=== PATIENT | male | born 1985 | race Caucasian/White ===

== ENCOUNTER 2025-06-11 10:57 | Outpatient (REF) | payer OTHER, SELFPAY ==
--- OUTSIDE RECORDS SUMMARY | 2025-06-11 13:02 | XMS_ITS | Encounter Summary ---
Author Organization Angela Day [facility] Address [address] [place] [address] Care Team Providers Care Level Vial Marker Name Role Phone Brandy Zarate MD, Adriel Buchanan Primary Care Provider + Shoshana Ordonez MD Primary Care Provider [phone] Shoshana Ordonez MD Primary Care Provider [phone] Daina Young DO Primary Care Provider [phone] Encounter Details Date Type Department Care Team (Late st Contact Info) Description 04/19/2011 Clinical Conversion Encounter [facility] Department of General Internal Medicine [facility] Primary Care [address] [address] Yu Gross MD [address] [place] [address] Social History Tobacco Use Types Packs/Day Years Used Date Smoking Tobacco: Never Assessed Sex and Gender Information Value Date Recorded Sex Assigned at Male 07/04/2019 10:04 PM EDT Legal Sex Male 5:10 AM EST Gender Identity Male 07/04/2019 10:04 PM EDT Sexual Orientation Not on file documented as of this encounter Miscellaneous Notes * Telephone Encounter - Yu Gross MD - 10/02/2014 4:57 PM EST [id number],JOSEPH REVISED [facility] - [place], [place]. Recorded as Task Date: 04/18/2011 01:12 PM, Created By: Lesley Barney Task Name: Patient-Call Back Assigned To: Lesley Barney Regarding Patient: YEHUDA ROSAS, Status: In Progress Comment: Lesley Barney - 18 Apr 2011 1:12 PM TASK CREATED Caller: Self; Pt is returning your p/c. YU GROSS - 18 Apr 2011 1:53 PM TASK EDITED calledleft message to call back. Lesley Barney - 18 Apr 2011 2:23 PM TASK IN PROGRESS Electronically signed by:Lesley Barney Apr 19 2011 11:55AM EST documented in this encounter Plan of Treatment Not on file documented as of this encounter Visit Diagnoses Not on filedocumented in this encounter Care Teams Level Vial Marker Relationship Specialty Start Date End Date Adriel Nava Jr., MD PCP - General 07/20/14 02/12/18 Shoshana Ordonez MD [address] [place] [address] PCP - General 02/13/18 02/13/18 Shoshana Ordonez MD [address] [place] [address] PCP - General 07/14/18 06/08/24 Daina Young DO [address] [facility] [address] [place] [id number] PCP - General Family Practice 06/09/24 documented as of this encounter
--- OUTSIDE RECORDS SUMMARY | 2025-06-11 13:02 | XMS_ITS | Clinical Summary ---
Author Organization [facility] Address [address] [facility] [place] [address] Care Team Providers Care Indian Trader Name Role Phone Pcp, None MD Primary Care Provider [phone] Allergies No known active allergies Medications TRAZODONE HCL (TRAZODONE ORAL) Take by mouth nightly. Active Social History Tobacco Use Types Packs/Day Years Used Date Smoking Tobacco: Every Day Cigarettes Alcohol Use Standard Drinks/Week Comments No 0 (1 standard drink = 0.6 oz pur e alcohol) Sex and Gender Information Value Date Recorded Sex Assigned at Not on file Legal Sex Male 9:37 AM EDT Gender Identity Not on file Sexual Orientation Not on file Last Filed Vital Signs Vital Sign Reading Time Taken Comments Blood Pressure 136/96 12/12/2017 1:41 PM EDT Pulse 91 12/12/2017 1:41 PM EDT Temperature 36.8 C (98.2 F) 12/12/2017 1:41 PM EDT Respiratory Rate 17 12/12/2017 1:41 PM EDT Oxygen Saturation 99% 12/12/2017 1:41 PM EDT Inhaled Oxygen Concentration - - Weight - - Height - - Body Mass Index - - Plan of Treatment Not on file Insurance [facility] [place] [id number] , [place] [address] [place] [address] , [place] [id number] , [place] [id number] , [place] [address] , [place] [address] , [place] [address] , [place] [address] [place] [address] [place] [address] [place] [address] [address]DA [address]OR[address] [id number] [address] [id number] [address] [id number] [address] [id number] [place]ORGAN [id number] Care Teams Indian Trader Relationship Specialty Start Date End Date Pcp, Carissa, [address] [place] [address] PCP - General 12/12/17
--- OUTSIDE RECORDS SUMMARY | 2025-06-11 13:02 | XMS_ITS | Encounter Summary ---
Author Organization Angela Day [facility] Address [address] [place] [address] Care Team Providers Care Manager Technical Training Name Role Phone Brandy Zarate MD, Adriel Buchanan Primary Care Provider + Shoshana Ordonez MD Primary Care Provider [phone] Shoshana Ordonez MD Primary Care Provider [phone] Daina Young DO Primary Care Provider [phone] Encounter Details Date Type Department Care Team (Late st Contact Info) Description 10/18/2011 Clinical Conversion Encounter GENERAL CONVERSION Eduardo Stover MD Social History Tobacco Use Types Packs/Day Years Used Date Smoking Tobacco: Never Assessed Sex and Gender Information Value Date Recorded Sex Assigned at Male 07/04/2019 10:04 PM EDT Legal Sex Male 5:10 AM EST Gender Identity Male 07/04/2019 10:04 PM EDT Sexual Orientation Not on file documented as of this encounter ED Notes * Eduardo Stover MD - 10/23/2014 10:22 PM EST [id number],JOSEPH [facility] Clinical Report - Physicians/Mid Levels [facility] [place] [address] 10/18/2011 Patient: YEHUDA ROSAS : 1985 Sex: M FC: [facility] Time Seen: 21:41 Oct 18 2011. Arrived- By private vehicle. HISTORY OF PRESENT ILLNESS Chief complaint- UPPER EXTREMITY PAIN and SWELLING. This started 2 days and is still present. The quality is noted to be pain . Severity is described as being moderate in degree. No radiation. Modifying factors- worsened by movement of wrist. He has had swelling but not had redness. Repetitive hand use at work. No chest pain, difficulty breathing, sensory loss or motor loss. Patient denies an injury. Similar symptoms previously: None. Recent medical care: The patient was seen recently in the emergency department. Seen for similar symptoms. Evaluation/treatment: x-rays. Diagnosis (Tendonitis). REVIEW OF SYSTEMS No fever, chills, eye discomfort, headache or depression. No sore throat, cough, skin rash, enlarged lymph nodes or neck pain. No abdominal pain, nausea, vomiting, diarrhea or black stools. No difficulty with urination, urinary frequency, hematuria or bloody stools. All systems otherwise negative, except as recorded above. PAST HISTORY See nurses notes. Medications: Voltaren Oral. Citalopram Hydrobromide Oral.. Allergies: No Known Drug Allergy.. SOCIAL HISTORY Occasional alcohol use. Nonsmoker - unknown if ever smoked. PHYSICAL EXAM Appearance: Alert. No acute distress. Vital Signs: (BP: 133 / 80. HR: 61. RR: 14. Temp: 97 F. O2 saturation: 100 % room air.). Skin: Skin intact. Skin warm. Normal skin color. Extremities: Right wrist: mild tenderness and swelling located in the volar aspect of the wrist. Limited ROM secondary to pain (diminished flexion and extension). Neurovascular intact distally. Extremities otherwise negative. Neuro: Oriented X 3. PROGRESS AND PROCEDURES Course of Care: 22:21. The patient's symptoms are unchanged.. Disposition: Condition: stable. CLINICAL IMPRESSION Tendonitis right wrist. INSTRUCTIONS Apply ice intermittently (15-20 minutes at a time 4-6 times daily). Elevate affected areas above chest level. Wear splint. Warnings: GENERAL WARNINGS: Return or contact your physician immediately if your condition worsens or changes unexpectedly, if not improving as expected, or if other problems arise. Specifically return if problem worsens. Your Current Medications: Your current home medications have been reviewed. No changes in your current home medications are recommended at this time. CONTINUE TAKING THE FOLLOWING MEDICATIONS: Citalopram Hydrobromide Oral Voltaren Oral. Prescription Medications: Vicodin 5 / 500 mg: take 1 orally every 4 hours as needed for pain. Dispense fifteen (15). No refill. Generic substitute OK. Follow-up: Follow up with an orthopedic surgeon in two days as scheduled. Understanding of the discharge instructions verbalized by patient. (Electronically signed by EDUARDO STOVER MD 10/18/2011 22:50) THIS DOCUMENT WAS ELECTRONICALLY AUTHENTICATED BY CK ON 10/18/2011 21:21:10: documented in this encounter Plan of Treatment Not on file documented as of this encounter Visit Diagnoses Not on filedocumented in this encounter Care Teams Manager Technical Training Relationship Specialty Start Date End Date Adriel Nava Jr., MD PCP - General 07/20/14 02/12/18 Shoshana Ordonez MD [address] [place] [address] PCP - General 02/13/18 02/13/18 Shoshana Ordonez MD [address] [place] [address] PCP - General 07/14/18 06/08/24 Daina Young DO [address] [facility] [address] [address] PCP - General Family Practice 06/09/24 documented as of this encounter
--- OUTSIDE RECORDS SUMMARY | 2025-06-11 13:02 | XMS_ITS | Encounter Summary ---
Author Organization Angela Day [facility] Address [address] [place] [address] Care Team Providers Care Polygraph Examiner Name Role Phone Brandy Zarate MD, Adriel Buchanan Primary Care Provider + Shoshana Ordonez MD Primary Care Provider [phone] Shoshana Ordonez MD Primary Care Provider [phone] Daina Young DO Primary Care Provider [phone] Encounter Details Date Type Department Care Team (Late st Contact Info) Description 12/16/2010 Clinical Conversion Encounter GENERAL CONVERSION Aria Posada MD Social History Tobacco Use Types Packs/Day Years Used Date Smoking Tobacco: Never Assessed Sex and Gender Information Value Date Recorded Sex Assigned at Male 07/04/2019 10:04 PM EDT Legal Sex Male 5:10 AM EST Gender Identity Male 07/04/2019 10:04 PM EDT Sexual Orientation Not on file documented as of this encounter ED Notes * Aria Posada MD - 10/02/2014 5:47 AM EST [id number],JOSEPH [facility] Clinical Report - Physicians/Mid Levels [facility] [place] [address] 12/16/2010 Patient: YEHUDA ROSAS : 1985 Sex: M FC: POS Time Seen: 23:58. Arrived- By private vehicle. Historian- patient. HISTORY OF PRESENT ILLNESS Chief Complaint: VOMITING. This started today and is still present. It was gradual in onset and has been waxing/waning. No recent travel. The patient has had nausea and vomiting. He has had crampy, constant abdominal pain. The pain is described as located in the central area of the abdomen. No diarrhea or history of possible bad food exposure. Has not recently been on antibiotics. The illness is described as severe. Similar symptoms previously: Patient has not had similar symptoms previously. Recent medical care: Not recently seen/assessed. REVIEW OF SYSTEMS No fever, difficulty with urination, dark urine, headache or dizziness. No cough, chest pain, difficulty breathing or fainting episodes. All systems otherwise negative, except as recorded above. PAST HISTORY Negative. Medications: None.. Allergies: No Known Drug Allergy.. SOCIAL HISTORY Occasional alcohol use. Nonsmoker. ADDITIONAL NOTES The nursing notes have been reviewed. PHYSICAL EXAM Appearance: Alert. Oriented X3. Vital Signs: Have been reviewed. Eyes: Pupils equal, round and reactive to light. ENT: Pharynx normal. Neck: Normal inspection. Neck supple. CVS: Normal heart rate and rhythm. Heart sounds normal. Pulses normal. Respiratory: No respiratory distress. Breath sounds normal. Abdomen: Soft. Tenderness in the upper abdomen and right side of the abdomen. Abnormal bowel sounds: hyperactive. Back: Normal inspection. Skin: Skin warm and dry. Extremities: No lower extremity edema. Neuro: Oriented X 3. No motor deficit. LABS, X-RAYS, AND EKG Laboratory Tests: AMYLASE: (CRYSTAL: 12/16/2010 23:23) ( MsgRcvd 12/16/2010 23:48) Final results Test Result Flag Units (Reference) AMYLASE 52 IU/L (25-130) [facility]; [place] COMP METAB PROF-PLASMA: (CRYSTAL: 12/16/2010 23:23) ( MsgRcvd 12/16/2010 23:48) Final results Test Result Flag Units (Reference) SODIUM 139 MMOL/L (135-146) POTASSIUM 3.5 MMOL/L (3.4-5.2) CHLORIDE 108 MMOL/L (98-110) TOTAL CO2 25 MMOL/L (24-32) ANION GAP 6 MMOL/L (2-15) BUN 17 MG/DL (7-20) CREATININE 0.8 MG/DL (0.6-1.3) GLUCOSE 116 H MG/DL (70-100) HOURS PC NOT STATED HR CALCIUM 8.7 MG/DL (8.4-10.4) GFR -AMER >60 ML/MIN (>60) GFR NON AFRICN-AMER >60 ML/MIN (>60) TOTAL PROTEIN 7.2 G/DL (6.2-8.2) ALBUMIN 4.1 G/DL (3.6-5.1) GLOBULIN 3.1 G/DL (2.0-4.0) AST (SGOT) 21 IU/L (11-40) ALT (SGPT) 22 IU/L (7-40) ALK PHOSPHATASE 65 IU/L (30-95) TOTAL BILIRUBIN 1.7 H MG/DL (0.2-1.3) [facility]; [place], [place] CBC WITH DIFF: (CRYSTAL: 12/16/2010 23:23) ( MsgRcvd 12/16/2010 23:40) Final results Test Result Flag Units (Reference) WBC 8.37 K/uL (4.4-11.3) RBC 5.44 M/uL (4.40-6.00) HEMOGLOBIN 16.8 G/DL (13.8-18.0) HEMATOCRIT 48.3 % (40.0-54.0) MCV 89 FL (80-96) PLATELET COUNT 172 K/uL (150-450) RDW 12.5 % (11.5-13.4) WBC 8.37 K/uL (4.4-11.3) [facility]; [place], [place] POLYS 83 H % (45-74) LYMPHOCYTE 10 L % (22-50) MONOCYTE 6 % (0.7-7.5) EOSINOPHIL 1 % (0-4) BASOPHIL 0 % (0-2) ABSOLUTE GRAN CT 6.96 H K/uL (1.4-6.6) ABSOLUTE LYMPH CT 0.85 L K/uL (1.2-3.5) ABSOLUTE MONO CT 0.47 K/uL (0.0-0.5) ABSOLUTE EOS CT 0.10 K/uL (0.00-0.40) ABSOLUTE BASO CT 0.00 L K/uL (0.02-0.08) . PROGRESS AND PROCEDURES Course of Care: 00:23. Patient feeling much better with fluids and zofran. Reexam of the abd reveals no tenderness. Will d/c with zofran ODT.. Disposition: Condition: good. Discharged. CLINICAL IMPRESSION Gastroenteritis. INSTRUCTIONS Drink plenty of fluids. Prescription Medications: Zofran (orally disintegrating tablets) 4 mg: every 6 hours as needed for nausea and vomiting. Dispense five (5). No refill. Follow-up: Follow up with your doctor. Call for an appointment. (Electronically signed by ARIA POSADA MD 12/17/2010 0:48) THIS DOCUMENT WAS ELECTRONICALLY AUTHENTICATED BY JUAN ON 12/16/2010 22:22:52: documented in this encounter Plan of Treatment Not on file documented as of this encounter Visit Diagnoses Not on filedocumented in this encounter Care Teams Polygraph Examiner Relationship Specialty Start Date End Date Adriel Nava Jr., MD PCP - General 07/20/14 02/12/18 Shoshana Ordonez MD [address] [place] [address] PCP - General 02/13/18 02/13/18 Shoshana Ordonez MD [address] [place] [address] PCP - General 07/14/18 06/08/24 Daina Young DO [address] [facility] [address] [place] [address] PCP - General Family Practice 06/09/24 documented as of this encounter
--- OUTSIDE RECORDS SUMMARY | 2025-06-11 13:02 | XMS_ITS | Encounter Summary ---
Author Organization [facility] Address [address] [place] [address] Care Team Providers Care Sales And Service Officer Name Role Phone Brandy Zarate MD, Adriel Buchanan Primary Care Provider + Shoshana Ordonez MD Primary Care Provider [phone] hSoshana Ordonez MD Primary Care Provider [phone] Daina Young DO Primary Care Provider [phone] Encounter Details Date Type Department Care Team (Late st Contact Info) Description 10/18/2011 Clinical Conversion Encounter GENERAL CONVERSION Adam Verdin MD [address] [place] [address] Social History Tobacco Use Types Packs/Day Years Used Date Smoking Tobacco: Never Assessed Sex and Gender Information Value Date Recorded Sex Assigned at Male 07/04/2019 10:04 PM EDT Legal Sex Male 5:10 AM EST Gender Identity Male 07/04/2019 10:04 PM EDT Sexual Orientation Not on file documented as of this encounter ED Notes * Adam Verdin MD - 10/23/2014 10:22 PM EST [id number],JOSEPH REVISED [facility] Clinical Report - Physicians/Mid Levels [facility] [place] [address] 10/18/2011 [facility]: [id number] 1985 Sex: M FC: [facility] Time Seen: 09:57 Oct 18 2011; initial patient contact. Historian- patient. HISTORY OF PRESENT ILLNESS Chief complaint; PROBLEM IN THE RIGHT WRIST. This started several days and is still present. It was gradual in onset. Not constant. The quality is noted to be pain . Severity is described as being moderate in degree. No radiation. 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 Symptoms located in the area of the right wrist. He has had swelling but not had redness. Repetitive hand use at work. No chest pain, difficulty breathing, sensory loss or motor loss. Patient denies an injury. Similar symptoms previously: None. Recent medical care: Not recently seen/assessed. REVIEW OF SYSTEMS No fever, chills, cough, skin rash or enlarged lymph nodes. No nausea. All systems otherwise negative, except as recorded above. PAST HISTORY Additional Problems: Tetanus Status. Immunizations.. Medications: Citalopram Hydrobromide Oral.. Allergies: No Known Drug Allergy.. SOCIAL HISTORY Nonsmoker - unknown if ever smoked. No alcohol use. No recent travel. FAMILY HISTORY Unremarkable. ADDITIONAL NOTES The nursing notes have been reviewed. PHYSICAL EXAM Appearance: Alert. Oriented X3. No acute distress. Vital Signs: Have been reviewed and normal. (BP: 128 / 87. HR: 78. RR: 16. Temp: 98.0 oral. Alert. No acute). Eyes: Pupils equal, round and reactive to light. ENT: Pharynx normal. Neck: Neck supple. CVS: Normal heart rate and rhythm. Heart sounds normal. Respiratory: No respiratory distress. Breath sounds normal. Back: Normal inspection. Skin: Skin intact. Skin warm. Normal skin color. Extremities: Right wrist: moderate tenderness and mild swelling located in the area of the radial styloid. Limited ROM secondary to pain (diminished flexion and extension). Neurovascular intact distally. No erythema. No joint effusion. Extremities otherwise negative. Neuro: Oriented X 3. No motor deficit. No sensory deficit. Reflexes normal. LABS, X-RAYS, AND EKG X-Rays: Right wrist negative. Right hand positive. The X-rays were independently viewed by me and interpreted by the radiologist. PROGRESS AND PROCEDURES Course of Care: Suspect tendonitis from overuse syndrome. No evidence for compartment syndrome or septic arthitis or cellulits. Pt has his own wrist splint that he started wearing several days ago. He has followup with his orthopaedic doctor later this week. Will place on voltaren and educate on GI risk since he is on celexa.. Patient/family counseled. Disposition: Condition: stable. Discharged. CLINICAL IMPRESSION Tendonitis right wrist. INSTRUCTIONS (Stiven Rosas was seen in the ER on Oct 18, 2011. He has a right wrist tendonitis related to repetitive use of the hand. He should wear the wrist splint at all times for the next 2 weeks and has limited use of the right hand for the next 10 days. Adam Verdin MD). (Thank you for choosing [facility] Emergency department for your care. The cause of your wrist pain is a tendonitis which is a result of oversue or repetitive hand movements. Please keep your wrist in the splint at all times for the next 2 weeks.. Use the voltaren as prescribed for pain. Take it with food and stop it immediately if you develop severe pain or bleeding from its use. Please contact the hand surgery clinic to schedule an appointment should your orthopaedic doctor does not want to address this along with your wrist pain. Inform them you have a wrist tendonitis/tenosynovitis. The number is [phone]). Your Current Medications: Continue current medications. Prescription Medications: Voltaren 50 mg tablets: Take 1 tablet orally every 8 hours as needed. Dispense thirty (30). No refills. Generic substitute OK. (Electronically signed by ADMA VERDIN MD 10/18/2011 10:44) Addenda for YEHUDA ROSAS VisitID: [id number] Date: 10/18/2011 10/18/2011 20:39 pt called stating that with splint and elevation his wrist has continued to swell. recommended to pt that he return to be revaluated. (Electronically signed by Radha Fajardo Rn - 10/18/2011 20:39) THIS DOCUMENT WAS ELECTRONICALLY AUTHENTICATED BY Velvet ON 10/18/2011 09:09:48: * Adam Verdin MD - 10/23/2014 10:22 PM EST [id number],JOSEPH [facility] Clinical Report - Physicians/Mid Levels [facility] [place] [address] 10/18/2011 Patient: YEHUDA ROSAS : 1985 Sex: M FC: HMO Time Seen: 09:57 Oct 18 2011; initial patient contact. Historian- patient. HISTORY OF PRESENT ILLNESS Chief complaint; PROBLEM IN THE RIGHT WRIST. This started several days and is still present. It was gradual in onset. Not constant. The quality is noted to be pain . Severity is described as being moderate in degree. No radiation. 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 Symptoms located in the area of the right wrist. He has had swelling but not had redness. Repetitive hand use at work. No chest pain, difficulty breathing, sensory loss or motor loss. Patient denies an injury. Similar symptoms previously: None. Recent medical care: Not recently seen/assessed. REVIEW OF SYSTEMS No fever, chills, cough, skin rash or enlarged lymph nodes. No nausea. All systems otherwise negative, except as recorded above. PAST HISTORY Additional Problems: Tetanus Status. Immunizations.. Medications: Citalopram Hydrobromide Oral.. Allergies: No Known Drug Allergy.. SOCIAL HISTORY Nonsmoker - unknown if ever smoked. No alcohol use. No recent travel. FAMILY HISTORY Unremarkable. ADDITIONAL NOTES The nursing notes have been reviewed. PHYSICAL EXAM Appearance: Alert. Oriented X3. No acute distress. Vital Signs: Have been reviewed and normal. (BP: 128 / 87. HR: 78. RR: 16. Temp: 98.0 oral. Alert. No acute). Eyes: Pupils equal, round and reactive to light. ENT: Pharynx normal. Neck: Neck supple. CVS: Normal heart rate and rhythm. Heart sounds normal. Respiratory: No respiratory distress. Breath sounds normal. Back: Normal inspection. Skin: Skin intact. Skin warm. Normal skin color. Extremities: Right wrist: moderate tenderness and mild swelling located in the area of the radial styloid. Limited ROM secondary to pain (diminished flexion and extension). Neurovascular intact distally. No erythema. No joint effusion. Extremities otherwise negative. Neuro: Oriented X 3. No motor deficit. No sensory deficit. Reflexes normal. LABS, X-RAYS, AND EKG X-Rays: Right wrist negative. Right hand positive. The X-rays were independently viewed by me and interpreted by the radiologist. PROGRESS AND PROCEDURES Course of Care: Suspect tendonitis from overuse syndrome. No evidence for compartment syndrome or septic arthitis or cellulits. Pt has his own wrist splint that he started wearing several days ago. He has followup with his orthopaedic doctor later this week. Will place on voltaren and educate on GI risk since he is on celexa.. Patient/family counseled. Disposition: Condition: stable. Discharged. CLINICAL IMPRESSION Tendonitis right wrist. INSTRUCTIONS (Stiven Rosas was seen in the ER on Oct 18, 2011. He has a right wrist tendonitis related to repetitive use of the hand. He should wear the wrist splint at all times for the next 2 weeks and has limited use of the right hand for the next 10 days. Adam Verdin MD). (Thank you for choosing [facility] Emergency department for your care. The cause of your wrist pain is a tendonitis which is a result of oversue or repetitive hand movements. Please keep your wrist in the splint at all times for the next 2 weeks.. Use the voltaren as prescribed for pain. Take it with food and stop it immediately if you develop severe pain or bleeding from its use. Please contact the hand surgery clinic to schedule an appointment should your orthopaedic doctor does not want to address this along with your wrist pain. Inform them you have a wrist tendonitis/tenosynovitis. The number is [phone]). Your Current Medications: Continue current medications. Prescription Medications: Voltaren 50 mg tablets: Take 1 tablet orally every 8 hours as needed. Dispense thirty (30). No refills. Generic substitute OK. (Electronically signed by ADAM VERDIN MD 10/18/2011 10:44) THIS DOCUMENT WAS ELECTRONICALLY AUTHENTICATED BY Velvet ON 10/18/2011 09:09:48: documented in this encounter Plan of Treatment Not on file documented as of this encounter Visit Diagnoses Not on filedocumented in this encounter Care Teams Sales And Service Officer Relationship Specialty Start Date End Date Adriel Nava Jr., MD PCP - General 07/20/14 02/12/18 Shoshana Ordonez MD [address] [place] [address] PCP - General 02/13/18 02/13/18 Shoshana Ordonez MD [address] [place] [address] PCP - General 07/14/18 06/08/24 Daina Young DO [address] [facility] [address], [place] [address] PCP - General Family Practice 06/09/24 documented as of this encounter
--- OUTSIDE RECORDS SUMMARY | 2025-06-11 13:02 | XMS_ITS | Encounter Summary ---
Author Organization [facility] Address [address] [place] [address] Care Team Providers Care Joy Loading Machine Operator Name Role Phone Brandy Zarate MD, Adriel Buchanan Primary Care Provider + Shoshana Ordonez MD Primary Care Provider [phone] Shoshana Ordonez MD Primary Care Provider [phone] Daina Young DO Primary Care Provider [phone] Encounter Details Date Type Department Care Team (Late st Contact Info) Description 04/13/2011 Clinical Conversion Encounter [facility] Department of General Internal Medicine [facility] Primary Care [address] [address] Yu Gross MD [address] [place] [address] Social History Tobacco Use Types Packs/Day Years Used Date Smoking Tobacco: Never Assessed Sex and Gender Information Value Date Recorded Sex Assigned at Male 07/04/2019 10:04 PM EDT Legal Sex Male 5:10 AM EST Gender Identity Male 07/04/2019 10:04 PM EDT Sexual Orientation Not on file documented as of this encounter Progress Notes * Yu Grsos MD - 10/02/2014 4:57 PM EST [id number],JOSEPH REVISED [facility] [place] [place]. History of Present Illness 25-year-old male comes for physical examination. His last physical was more than 4 years ago. Complains of left knee pain for many years progressively getting worse in the past had left knee arthroscopic surgery. Still continues to have pain states that sometimes it gets locked up. And it has been bothering him with his work. He is already scheduled to see a of the patient outside at [facility]. Denies any weakness numbness in the legs. Active Problems Joint Pain In The Left Knee Joint Pain, Localized In The Knee 719.46 Sexually Active High-risk V69.2 Tobacco Use 305.1 Surgical History Left knee arthroscopic surgery for meniscal tear and spur. Immunizations States that he is up-to-date with immunizations. Social History Sexually Active High-risk V69.2 Tobacco Use 305.1 Lives alone. Smokes about half a packet per day of cigarettes for the last 4 years. 2-3 alcoholic beverages 2-3 times per week denies any alcohol-related problems. No history of recreational drug use. 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 Family History Mother alive age 44 healthy, father alive age 48 has history of diabetes type 2. 3 siblings all are healthy. No family history of colon cancer or premature coronary artery disease. Review of Systems Other than left knee pain as described in history of present illness denies any other complaints. No recent history of hospital admissions. Wears glasses denies any visual problems. Denies any skin changes has a tattoo on the right forearm. Denies any shortness of breath or chest pain. No dizziness or palpitations. No nausea or vomiting, no blood in the stools or changes in bowel movements. No urinary complaints. Sexually active with multiple partners does not use protection all the time. [facility] Vitals Data Includes: Current Encounter [id number] 09:26AM Systolic 98 Diastolic 60 Heart Rate 91 BMI Calculated 22.08 BSA Calculated 1.95 Height 6 ft Weight 163 lb O2 Saturation 98 Temperature 98 F Pain Score 8 Pain Site left knee Notified Yes Allergy Status Reviewed Yes Safe at Home Yes Physical Exam Constitutional General appearance: Normal. Eyes Conjunctiva and lids: Normal. Pupils and irises: Normal. Ears, Nose, Mouth, and Throat External inspection of ears and nose: Normal. Otoscopic examination: Normal. Oropharynx: Normal. Pulmonary Respiratory effort: Normal. Auscultation of lungs: Normal. Cardiovascular Palpation of heart: Normal. Auscultation of heart: Normal. Examination of extremities for edema and/or varicosities: Normal. Abdomen Abdomen: Normal. Liver and spleen: Normal. Lymphatic Palpation of lymph nodes in neck: Normal. Musculoskeletal Gait and station: Normal. Digits and nails: Normal. Inspection/palpation of joints, bones, and muscles: Abnormal. Left knee notable for crepitations. No erythema or swelling noted. Skin Skin and subcutaneous tissue: Normal. Neurologic Cranial nerves: Normal. Reflexes: Normal. Sensation: Normal. Psychiatric Orientation to person, place, and time: Normal. Mood and affect: Normal. Genital examination does not reveal hernia's, no palpable masses and negative for inguinal lymphadenopathy. Assessment 1. Joint Pain In The Left Knee 2. Health Maintenance V70.0 3. Sexually Active High-risk V69.2 4. Tobacco Use 305.1 5. Joint Pain, Localized In The Knee 719.46 Plan 1. BuPROPion HCl (Smoking Deter) 150 MG Oral Tablet Extended Release 12 Hour; TAKE 1 TABLET ONCE A DAY FOR 2 DAYS THEN TAKE 1 TABLET TWICE A DAY THEREAFTER; Therapy: [id number] to (Last Rx:[id number]) Requested for: [id number]; Edited 25-year-old male comes for establishment of primary care and physical examination. Would get fasting labs. History of left knee pain scheduled to see an orthopedist in outside. High-risk sexual behavior patient was counseled and advised to use protection all the time also urethral swab taken for Chlamydia and gonorrhea. Patient counseled for HIV consent taken to be tested. Smoking patient was counseled states that he tried patches, Chantix in the past. Chantix had caused mood changes so he stopped he would like to try other options. Signatures Electronically signed by : YU GROSS MD; Apr 13 2011 10:20AM (Author) Electronically signed by : YU GROSS MD; Sep 11 2013 1:29PM (Author) documented in this encounter Plan of Treatment Not on file documented as of this encounter Procedures Procedure Name Priority Date/Time Associated Diagnosis Comments AMPLIFIED PROBE, GONORRHOEAE STAT 04/13/2011 10:03 AM EDT AMPLIFIED PROBE, CHLAMYDIA TRACHOMATIS STAT 04/13/2011 10:03 AM EDT documented in this encounter Results * Gonorrhoeae Amplified Probe (04/13/2011 10:03 AM EDT) Specimen URETHRA SUNQUEST Javier NONE SUNQUEST Result Incorrect patient, specimen or requisition identification when SUNQUEST Comment: received by Laboratory Medicine. Identification confirmed by (see attached name). IDENTIFIED BY DYLAN SANTILLAN 8.4.11@1030 N. gonorrhoeae amplified: Negative Final FINAL 04/14/2011 SUNQUEST 04/13/2011 10:0 3 AM EDT 04/13/2011 7:00 PM EDT us Yu Gross MD MICROBIOLOGY - GENERAL OR DERABLES Final Result Performing Organization Address City/[facility] de Phone Number SUNQUEST * Chlamydia trachomatis Amplified Probe (04/13/2011 10:03 AM EDT) Specimen URETHRA SUNQUEST Javier NONE SUNQUEST Result Incorrect patient, specimen or requisition identification when SUNQUEST Comment: received by Laboratory Medicine. Identification confirmed by (see attached name). IDENTIFIED BY DYLAN SANTILLAN 8.4.11@1030 C. trachomatis amplified: Positive Positive screening tests are presumptive evidence of infection. Additional testing is suggested if a false positive screening test result would lead to adverse medical, social, or psychological impact. Consider additional testing after a positive screening test if the PPV is considered low (< 90 percent). Final FINAL 04/14/2011 SUNQUEST 04/13/2011 10:0 3 AM EDT 04/13/2011 7:00 PM EDT us Yu Gross MD MICROBIOLOGY - GENERAL OR DERABLES Final Result Performing Organization Address City/[facility] Co de Phone Number SUNQUEST documented in this encounter Visit Diagnoses Not on filedocumented in this encounter Care Teams Joy Loading Machine Operator Relationship Specialty Start Date End Date Adriel Nava Jr., MD PCP - General 07/20/14 02/12/18 Shoshana Ordonez MD [address] [place] [address] PCP - General 02/13/18 02/13/18 Shoshana Ordonez MD [address] [place] [address] PCP - General 07/14/18 06/08/24 Daina Young DO [address] [facility] [address] [address] PCP - General Family Practice 06/09/24 documented as of this encounter
--- OUTSIDE RECORDS SUMMARY | 2025-06-11 13:02 | XMS_ITS | Clinical Summary ---
Author Organization [facility] Address [address] [place] [address] Care Team Providers Care Body Maker Name Role Phone Daina Young DO Primary Care Provider [phone] Allergies No known active allergies Medications naltrexone ER (VIVITROL) 380 mg SERR im injection Inject 4 mL (380 mg total) into gluteal muscle once. Active traZODone (DESYREL) 100 MG tablet Take 1 tablet (100 mg total) by mouth at bedtime. Active gabapentin (NEURONTIN) 300 MG capsule Take 1 capsule (300 mg total) by mouth 4 times a day. Active buprenorphine-n aloxone (SUBOXONE) 8-2 mg per SL tablet Place 1 tablet under the tongue daily. Active dextroamphetami ne-amphetamine (AdderalL) 30 mg tablet Take 1 tablet (30 mg total) by mouth daily. Active Active Problems Problem Noted Date Diagnosed Date Knee pain 04/13/2011 Overview (11/09/2014): Joint Pain, Localized In The Knee Tobacco use 04/13/2011 Overview (11/09/2014): Tobacco Use Immunizations Immunization Administration Dates Next Due Tdap Vaccine (BOOSTRIX/ADACEL) 06/10/2024 Social History Tobacco Use Types Packs/Day Years Used Date Smoking Tobacco: Former Cigarettes Smokeless Tobacco: Never Tobacco Cessation:Counseling Given: Not Answered Alcohol Use Standard Drinks/Week Comments No 0 (1 standard drink = 0.6 oz pur e alcohol) Sex and Gender Information Value Date Recorded Sex Assigned at Male 07/04/2019 10:04 PM EDT Legal Sex Male 5:10 AM EST Gender Identity Male 07/04/2019 10:04 PM EDT Sexual Orientation Not on file Last Filed Vital Signs Vital Sign Reading Time Taken Comments Blood Pressure 133/91 06/09/2024 11:32 PM EDT Pulse 84 06/09/2024 11:32 PM EDT Temperature 36.3 C (97.4 F) 06/09/2024 11:29 PM EDT Respiratory Rate 16 06/09/2024 11:32 PM EDT Oxygen Saturation 98% 06/09/2024 11:32 PM EDT Inhaled Oxygen Concentration - - Weight 93 kg (205 lb) 06/09/2024 11:29 PM EDT Height 182.9 cm (6') 06/09/2024 11:29 PM EDT Body Mass Index 27.8 06/09/2024 11:29 PM EDT Plan of Treatment Health Maintenance Due Date Last Done Comments Depression Screening 1990 Hepatitis C Screening 2004 COVID-19 Vaccine (1 - 2023-2 5 season) 2025 Influenza Vaccine (#1) 2025 Blood Pressure 06/09/2028 06/09/2024 DTaP,Tdap,and Td Vaccines (2 - Td or Tdap) 06/10/2034 06/10/2024 Meningococcal B Vaccines Aged Out No longer eligible based on patient's age to complete this topic Meningococcal Vaccines Aged Out No lo nger eligible based on patient's age to complete this topic Pneumococcal Vaccine Aged Out No long er eligible based on patient's age to complete this topic Insurance [address] [place] [address], [place] [address] [employer] Care Teams Body Maker Relationship Specialty Start Date End Date Daina Young DO [address] [facility] [address] [place] [address] PCP - General Family Practice 06/09/24
--- OUTSIDE RECORDS SUMMARY | 2025-06-11 13:02 | XMS_ITS | Encounter Summary ---
Author Organization [facility] Address [address] [place] [address] Care Team Providers Care Supervisor Paint Department Name Role Phone Brandy Zarate MD, Adriel Buchanan Primary Care Provider + Shoshana Ordonez MD Primary Care Provider [phone] Shoshana Ordonez MD Primary Care Provider [phone] Daina Young DO Primary Care Provider [phone] Encounter Details Date Type Department Care Team (Late st Contact Info) Description 07/03/2012 Clinical Conversion Encounter GENERAL CONVERSION Darell Jett MD Social History Tobacco Use Types Packs/Day Years Used Date Smoking Tobacco: Never Assessed Sex and Gender Information Value Date Recorded Sex Assigned at Male 07/04/2019 10:04 PM EDT Legal Sex Male 5:10 AM EST Gender Identity Male 07/04/2019 10:04 PM EDT Sexual Orientation Not on file documented as of this encounter ED Notes * Darell Jett MD - 10/25/2014 1:19 PM EST [id number],JOSEPH [facility] Clinical Report - Physicians/Mid Levels [facility] [place] [address] 07/03/2012 Patient: YEHUDA ROSAS : 1985 Sex: M FC: [facility] Time Seen: 21:46 Jul 03 2012. Historian- patient. HISTORY OF PRESENT ILLNESS Chief Complaint- Injury to the left wrist. The injury happened 1 week ago. Twisting injury (Using a drill and it rotated the wrist). Occurred at work. Patient is experiencing moderate pain. No other injury. REVIEW OF SYSTEMS The patient has had swelling. No tingling or numbness. PAST HISTORY The patient's dominant hand is the right. Surgeries: Knee surgery. Allergies: No Known Drug Allergy.. SOCIAL HISTORY Smoker- less than 1 pack per day. ADDITIONAL NOTES The nursing notes have been reviewed. Weight: 86.1 kg stated. Height: 72 inches Per Patient. BMI: 25.8. PHYSICAL EXAM Appearance: Alert. No acute distress. Vital Signs: (BP: 119 / 77. HR: 82. RR: 20. Temp: 97.8 oral. O2 saturation: 95 % room air). Extremities: Left wrist: moderate tenderness and mild swelling located in the volar, radial and ulnar aspect of the wrist. No limitation in ROM. Extremities otherwise negative. Neuro, Vascular and Tendons: Vascular status intact. Sensation intact. Motor intact. Tendon function intact. LABS, X-RAYS, AND EKG Lt Wrist X-ray: No fracture. Normal alignment. The X-rays were interpreted contemporaneously by me. PROGRESS AND PROCEDURES Splint Application: Velcro short arm splint applied to left wrist. Splint applied by nurse. Reassessed extremity following splint application. Neurovascular intact. Follow-up recommended within 5 days. Disposition: Discharged home in stable and improved condition. CLINICAL IMPRESSION Sprained left wrist. INSTRUCTIONS Wear canvas splint. OTC Medications: Motrin IB 200 mg (available over the counter): take 4 orally every 8 hours as needed for pain. Follow-up: Follow up with a hand surgeon in five days. Follow-up with: a follow up appointment is required. A [facility] admissions coordinator will be calling you to facilitate an appointment. If you have not received a call within 2 business days, please call the coordinator at [phone]. (Electronically signed by Darell Jett M.D. 07/05/2012 8:24) THIS DOCUMENT WAS ELECTRONICALLY AUTHENTICATED BY Maliha ON 07/03/2012 21:21:16: documented in this encounter Plan of Treatment Not on file documented as of this encounter Visit Diagnoses Not on filedocumented in this encounter Care Teams Supervisor Paint Department Relationship Specialty Start Date End Date Adriel Nava Jr., MD PCP - General 07/20/14 02/12/18 Shoshana Ordonez MD [address] [facility] [place] [address] PCP - General 02/13/18 02/13/18 Shoshana Ordonez MD [address] [facility] [place] [address] PCP - General 07/14/18 06/08/24 Daina Young DO [address] [facility] [address] [address] PCP - General Family Practice 06/09/24 documented as of this encounter
--- OUTSIDE RECORDS SUMMARY | 2025-06-11 13:02 | XMS_ITS | Encounter Summary ---
Author Organization [facility] Address [address] [place] [address] Care Team Providers Care Tug Captain Name Role Phone Brandy Zarate MD, Adriel Buchanan Primary Care Provider + Shoshana Ordonez MD Primary Care Provider [phone] Shoshana Ordonez MD Primary Care Provider [phone] Daina Young DO Primary Care Provider [phone] Encounter Details Date Type Department Care Team (Late st Contact Info) Description 01/13/2014 Clinical Conversion Encounter GENERAL CONVERSION Darell Jett [...] ED Notes * Darell Jett MD - 11/05/2014 9:42 AM EST [id number],JOSEPH [facility] Clinical Report - Physicians/Mid Levels [facility] [place] [address] 01/13/2014 20:19 Patient: YEHUDA ROSAS : 1985 Sex: M FC: [facility] Time Seen: 22:06 Jan 13 2014. Historian- patient. HISTORY OF PRESENT ILLNESS Chief Complaint: ; PAIN IN THE RIGHT ANKLE. This started today and is still present. Present on awakening. The quality is noted to be pain . It is described as radiating to the right calf. Severity is described as being moderate. He has had redness and swelling. The patient has had difficulty walking. No sensory loss or motor loss. REVIEW OF SYSTEMS No anorexia, chills, fatigue, fever or sweats. No nausea, vomiting, dizziness, fainting episodes or headache. PAST HISTORY Post-traumatic stress disorder. Anxiety. Surgeries: Right and left knee surgery. Medications: None.. Allergies: No Known Drug Allergy.. SOCIAL HISTORY Smoker- less than 1 pack per day. Alcohol use (Few beers last night). ADDITIONAL NOTES The nursing notes have been reviewed. Weight: 86.1 kg stated. Height/Length: 72 inches Per Patient. BMI: 25.8. PHYSICAL EXAM Appearance: Alert. No acute distress. Vital Signs: (BP: 126 / 88 sitting R arm auto (lg adult cuff). HR: 98. RR: 17. Temp: 97.6 F (oral). O2 saturation: 98 percent on room air). Respiratory: No respiratory distress. Extremities: Right ankle: mild erythema and swelling and moderate tenderness localized to the lateral malleolus. No limitation in ROM. No signs of infection involving the lower extremities. Neuro, Vascular and Tendons: No pulse deficit present. LABS, X-RAYS, AND EKG Laboratory Tests: Laboratory tests have been ordered, with results reviewed and considered in the medical decision making process. (CRP is 3.5). CBC: CBC is normal. Chemistries: Uric acid normal- 7.1. PROGRESS AND PROCEDURES Course of Care: 22:15. Acute arthritis right ankle, will check uric acid, CBC and CRP. 22:30. Pt. unwilling to wait for lab results, will treat for gout. Old ED records reviewed. Disposition: Discharged in stable and unchanged condition. CLINICAL IMPRESSION Acute gouty arthritis involving the right ankle. INSTRUCTIONS Warnings: GENERAL WARNINGS: Return or contact your physician immediately if your condition worsens or changes unexpectedly, if not improving as expected, or if other problems arise. Specifically return if vomiting, breathing difficulty or fever. Prescription Medications: Ibuprofen 800 mg tablets: take 1 tablet orally every 8 hours. Dispense thirty (30). No refill. (Electronically signed by Darell Jett M.D. 01/15/2014 1:34) THIS DOCUMENT WAS ELECTRONICALLY AUTHENTICATED BY Maliha ON 01/13/2014 20:20:20: documented in this encounter Plan of Treatment Not on file documented as of this encounter Procedures Procedure Name Priority Date/Time Associated Diagnosis Comments CBC AND DIFFERENTIAL STAT 01/13/2014 10:13 PM EDT documented in this encounter Results * CBC and Differential (01/13/2014 10:13 PM EDT) WBC 7.24 4.4 - 11.3 K/uL [facility] Comment:[facility]; CHANDA Carrillo RBC 5.17 4.50 - 5.90 M/uL [facility] Comment:[facility] ormanny; CHANDA Carrillo Hemoglobin 15.8 13.8 - 17.4 G/DL [facility] Comment:[facility] ormanny; CHANDA Carrillo Hematocrit 46.0 41.0 - 51.0 % [facility] Comment:Barb sykes; CHANDA Carrillo MCV 89 80 - 96 FL [facility] Comment:Barb sykes; CHANDA Carrillo Platelet Count 215 150 - 450 K/uL [facility] Comment:Barb sykes; CHANDA Carrillo RDW 13.0 11.6 - 14.6 % [facility] Comment:[facility]; CHANDA Carrillo WBC 7.24 4.4 - 11.3 K/uL [facility] Comment:Barb Carrillo [place] Polys 55 % [facility] Comment:Barb Carrillo [place] Lymphocyte 36 % [facility] Comment:[facility]b [facility] ormanny; CHANDA Carrillo Monocyte 7 % [facility] Comment:Barb Beard orgermán Carrillo [place] Eosinophil 2 % [facility] Comment:Barb Beard orgermán Carrillo [place] Basophil 0 % [facility] Comment:[facility]; CHANDA Carrillo Absolute Neutrophil Count 3.98 1.4 - 6.6 K/uL [facility] Comment:[facility]; CHANDA Carrillo Absolute Lymphocyte Count 2.57 1.2 - 3.5 K/uL [facility] Comment:[facility]; CHANDA Carrillo Absolute Monocyte Count 0.52 0.0 - 1.0 K/uL [facility] Comment:[facility]; CHANDA Carrillo Absolute Eosinophil Count 0.15 0.00 - 0.40 K/uL [facility] Comment:[facility]; CHANDA Carrillo Absolute Basophil Count 0.02 0.00 - 0.20 K/uL [facility] Comment:[facility]; CHANDA Carrillo 01/13/2014 10:1 3 PM EDT 01/13/2014 10:22 PM EDT Darell Jett MD LAB BLOOD ORDERABLES Final Resu lt [facility] documented in this encounter Visit Diagnoses Not on filedocumented in this encounter Care Teams Tug Captain Relationship Specialty Start Date End Date Adriel Nava Jr., MD PCP - General 07/20/14 02/12/18 Shoshana Ordonez MD [address] [place] [address] PCP - General 02/13/18 02/13/18 Shoshana Ordonez MD [address] [place] [address] PCP - General 07/14/18 06/08/24 Daina Young DO [address] [facility] [address] [place] [address] PCP - General Family Practice 06/09/24 documented as of this encounter
--- OUTSIDE RECORDS SUMMARY | 2025-06-11 13:03 | XMS_ITS | Encounter Summary ---
Author Organization [facility] Address [address] [place] [address] Care Team Providers Care Land Manager Name Role Phone Brandy Zarate MD, Adirel Buchanan Primary Care Provider + Shoshana Ordonez MD Primary Care Provider [phone] Shoshana Ordonez MD Primary Care Provider [phone] Daina Young DO Primary Care Provider Encounter Details Date Type Department Care Team (Latest Contact Info) Description 03/07/2010 Clinical Conversion Encounter Department of Orthopedic Surgery ([facility] Orthopedic Surgery [address] [place] [id number] Lizbet Lee PA Pain in joint, lower leg Social History Tobacco Use Types Packs/Day Years Used Date Smoking Tobacco: Never Assessed Sex and Gender Information Value Date Recorded Sex Assigned at Male 07/04/2019 10:04 PM EDT Legal Sex Male 5:10 AM EST Gender Identity Male 07/04/2019 10:04 PM EDT Sexual Orientation Not on file documented as of this encounter Progress Notes * EVER Kerr - 09/29/2014 8:19 PM EST [id number],JOSEPH [facility] - [facility] ORTHOPAEDIC SURGERY YEHUDA ROSAS 03/07/2010 # [id number] : 1985 Second Visit ID: [id number] Visit ID: [id number] REASON FOR VISIT: Left knee pain. HISTORY OF PRESENT ILLNESS: Yehuda is a pleasant 24-year-old male who states approximately three years ago, he had a left knee arthroscopy and medial meniscectomy with bone spur removal. This was done by Dr. Bowen at [facility]. He states following that surgery he did approximately six months of physical therapy. He does not recall any injury leading up to this surgery, although he played hockey most of his life. Currently, he states that his knee pain has not really improved significantly since the surgery. 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 He states because of his job, he is on his knees quite often, which causes him increased pain. He states that he has intermittent swelling of his knee. He states that at times he feels like his knee may lock, but he is able to manually unlock it. He does use ice on occasion, which helps. He is not taking any medications, has not had any injections or tried any recent PT recently for this knee. He rates his pain at 6/10 on the pain scale. MAJOR MEDICAL PROBLEMS: None listed. PREVIOUS SURGERY: Left knee arthroscopy. MEDICATIONS: Percocet. ALLERGIES TO MEDICATIONS: None known. SOCIAL HISTORY: He is single. He smokes approximately one pack per day. He drinks alcohol approximately 10 per week. FAMILY HISTORY: High blood pressure, diabetes. REVIEW OF SYSTEMS: Significant for hearing loss and glasses. PHYSICAL EXAMINATION: He is 6 foot, weighs 145 pounds. Examination of his left knee showed well healed portholes. No obvious swelling, erythema, ecchymosis or deformities. The patient has full range of motion. There is noted crepitus. He states that at times he feels like his knee may lock, but he is able to manually unlock it. He does have medial joint line tenderness on palpation. No lateral joint line tenderness. He has negative Trini's, negative Dayo's. He has full strength. He is able to dorsiflex and plantarflex. He is neurovascularly intact. Distal pulses are present. Capillary refill +2. He does have very tight hamstrings. He has good tracking of his patella. Dr. Estrada was present for interview and exam. IMPRESSION AND PLAN: Left knee pain. The patient was given a prescription for physical therapy. He will follow up with Dr. Estrada in approximately eight weeks. He was instructed that if signs or symptoms should worsen prior to his follow-up, he should call the orthopedic clinic to be seen sooner. Lizbet Lee PA-C [phone] Dictating for Aneesh Estrada MD [facility]:[id number] J: [id number] CC: Aria Mancini MD, <Primary Care Physician> THIS DOCUMENT WAS ELECTRONICALLY AUTHENTICATED BY Lizbet Lee PA-C ON 03/08/2010 10:58:18 MELANYTARA YEHUDA 03/07/2010 # [id number] documented in this encounter Plan of Treatment Not on file documented as of this encounter Procedures Procedure Name Priority Date/Time Associated Diagnosis Comments XR KNEE PAIN PROTOCOL LEFT Routine 03/07/2010 11:43 AM EDT Pain in joint, lower leg XR KNEES PA FLEXION STANDING Routine 03/07/2010 11:43 AM EDT Pain in joint, lower leg documented in this encounter Results * XR Knees PA Flexion Standing (03/07/2010 11:43 AM EDT) Anatomical Region Laterality Modality Knee Bilateral Radiographic Margaret ging 03/07/2010 11:4 3 AM EDT Narrative 03/07/2010 12:16 PM EDT Left knee pain Both knees: Two standing views, AP and PA/flexion. Left knee: 2 standard nonweightbearing views, lateral and tangential patellar. Impression: 1. No varus or valgus deformity with weight-bearing. 2. Minimal medial subluxation of the left patella. 3. No demonstrable left knee effusion. This document was electronically signed by SHANTAL GOMES MD on 03/07/2010 12:16:00 Procedure Note Shantal Gomes MD - 11/12/2014 Left knee pain Both knees: Two standing views, AP and PA/flexion. Left knee: 2 standard nonweightbearing views, lateral and tangential patellar. Impression: 1. No varus or valgus deformity with weight-bearing. 2. Minimal medial subluxation of the left patella. 3. No demonstrable left knee effusion. This document was electronically signed by SHANTAL GOMES MD on 03/07/2010 12:16:00 Aneesh Estrada MD [facility] DIAGNOSTIC IMAGING ORDERA BLES Final Result * XR Knee Pain Protocol Left (03/07/2010 11:43 AM EDT) Anatomical Region Laterality Modality Knee Left Radiographic Margaret ging 03/07/2010 11:4 3 AM EDT Narrative 03/07/2010 12:16 PM EDT Left knee pain Both knees: Two standing views, AP and PA/flexion. Left knee: 2 standard nonweightbearing views, lateral and tangential patellar. Impression: 1. No varus or valgus deformity with weight-bearing. 2. Minimal medial subluxation of the left patella. 3. No demonstrable left knee effusion. This document was electronically signed by SHANTAL GOMES MD on 03/07/2010 12:16:00 Procedure Note Shantal Gomes MD - 11/12/2014 Left knee pain Both knees: Two standing views, AP and PA/flexion. Left knee: 2 standard nonweightbearing views, lateral and tangential patellar. Impression: 1. No varus or valgus deformity with weight-bearing. 2. Minimal medial subluxation of the left patella. 3. No demonstrable left knee effusion. This document was electronically signed by SHANTAL GOMES MD on 03/07/2010 12:16:00 Aneesh Estrada MD [facility] DI[facility]NOSTIC IMAGING ORDERA BLES Final Result documented in this encounter Visit Diagnoses Diagnosis Pain in joint, lower leg documented in this encounter Care Teams Land Manager Relationship Specialty Start Date End Date Adriel Nava Jr., MD PCP - General 07/20/14 02/12/18 Shoshana Ordonez MD [address] [place] [address] PCP - General 02/13/18 02/13/18 Shoshana Ordonez MD [address] [place] [address] PCP - General 07/14/18 06/08/24 Daina Young DO [address] [facility] [address] [address] PCP - General Family Practice 06/09/24 documented as of this encounter
[2025-06-11 13:26] LABS: Cannabinoid Screen Urine Not Detected (Not Detect)
== END 2025-06-11 10:58 | disposition home or self-care (01) ==
LOC: HO.LAB 10:57
PROVIDERS: PCP Obstetrics & Gynecology; Visit Provider Physician Assistant
DX: F90.2 Attention-deficit hyperactivity disorder, combined type (principal)
CPT/HCPCS: 80307